=== PATIENT | female | born 1975 | race Caucasian/White ===

== ENCOUNTER → 2024-05-06 15:33 | Outpatient (CLI) | payer OTHER, SELFPAY ==
[2024-05-06 16:55] LABS: Follicle Stimulating Hormone 40.9 mIU/mL
[2024-05-06 17:08] LABS: TSH w/ Reflex to FT4 1.67 uIU/mL (0.47-4.68)
== END ==
PROVIDERS: Family Provider Obstetrics & Gynecology; Referring Provider Obstetrics & Gynecology; Visit Provider Obstetrics & Gynecology
DX: N95.1 Menopausal and female climacteric states (principal)
CPT/HCPCS: 36415; 83001; 84443